=== PATIENT | male | born 1975 ===

== ENCOUNTER 2017-12-23 14:40 | Emergency (ER) | payer OTHER ==
[2017-12-23] MEDS ORDERED: levETIRAcetam 500 MG in Sodium Chloride 0.9% 100 ML IVPB STA (15:06)
[2017-12-23] MEDS ORDERED: Sodium Chloride 0.9% 1,000 ML IV ONE (15:06)
[2017-12-23 15:19] LABS: BASO # 0.2 K/uL (0.0-0.2); BASO % 3.7 % (0.0-2.0); EOS % 0.2 % (0.0-4.0); LYMPH % 22.7 % (20.0-40.0); MEAN CELL VOLUME 92.2 fL (80.0-94.0); MEAN CORPUSCULAR HEMOGLOBIN 31.9 pg (27.0-31.0); MEAN CORPUSCULAR HGB CONC 34.6 g/dL (33.0-37.0); MEAN PLATELET VOLUME 8.6 fL (7.2-11.7); MONO # 0.3 K/uL (0.0-0.8); MONO % 6.1 % (0.0-10.0); NEUT # 3.1 K/uL (1.8-7.0); NEUT % 67.3 % (50.0-75.0); NRBC % 0.3 % (0.0-2.0); PLATELET COUNT 196 K/uL (130-400); RBC 4.38 Mil/uL (4.40-5.90); WHITE BLOOD COUNT 4.5 K/uL (4.8-10.8)
[2017-12-23 15:32] LABS: ALB/GLOB RATIO 1.4 (1.0-2.1); ALBUMIN 4.5 g/dL (3.5-5.0); ALT/SGPT 265 U/L (21-72); AST/SGOT 649 U/L (17-59); BLOOD UREA NITROGEN 11 mg/dL (9-20); CALCIUM 8.7 mg/dl (8.6-10.4); GFR AFRICAN-AMERICAN > 60; GFR NON-AFRICAN AMERICAN > 60
--- NOTE | 2017-12-23 15:44 | C.PDOC ---
History Of Present Illness 41 y/o male, w/PMhx of seizures, presents to the ER for evaluation of seizure activity which occurred today. Patient states that he had seizure today. Sister of patient notes that the episode lasted about 3 minutes. Sister notes that he had another seizure while she was driving him to the ER. Patient notes that he is supposed to be taking Keppra but he has not been taking it for the past several weeks. He states that he has history of bipolar disorder and anxiety, he is not compliant with his [place] medication. Time Seen by Provider: 12/23/17 14:48 Chief Complaint (Nursing): Altered Mental Status History Per: Patient, Family History/Exam Limitations: no limitations Number Of Seizures: Multiple Severity: Moderate Past Medical History Reviewed: Historical Data, Nursing Documentation, Vital Signs Vital Signs: Last Vital Signs Temp 97.7 F 12/23/17 19:26 Pulse 69 12/23/17 19:26 Resp 16 12/23/17 19:26 BP 95/52 L 12/23/17 19:26 Pulse Ox 97 12/23/17 19:26 - Medical History PMH: Bipolar Disorder, Seizures Surgical History: No Surg Hx Family History: States: No Known Family Hx - Social History Hx Alcohol Use: Yes Hx Substance Use: No (Denies) Review Of Systems Except As Marked, All Systems Reviewed And Found Negative. Constitutional: Negative for: Fever, Chills Neurological: Positive for: Seizures (currently resolved) Physical Exam - Physical Exam Appears: Non-toxic, Other (awake, alert, aggressive, mildly combative, only answers some questions) Skin: Normal Color, Warm, Dry Head: Atraumatic, Normacephalic Eye(s): bilateral: Normal Inspection Nose: Normal Oral Mucosa: Moist Tongue: No Laceration, Other (tongue fasciculation) Neck: Supple Chest: Symmetrical Cardiovascular: Rhythm Irregular (tachycardiac) Respiratory: Normal Breath Sounds, No Rales, No Rhonchi Neurological/Psych: Other (awake, alert, mildly combative) ED Course And Treatment - Laboratory Results Result Diagrams: 12/23/17 15:14 12/23/17 15:14 Medical Decision Making Medical Decision Making: Plan: --Labs --UA --ECG --Ativan IV --Haldol IM --IV Fluids Patient given 1L NS bolus. Ativan 2mg ivp given. Haldol 5mg IM also given for combative behavior which successfully sedated the patient. he was sleeping comfortably throughout ED course. No further seizures noted. 500mg Keppra ivpb given as patient has been noncompliant with his medication at home. On re-eval patient was in no acute distress, sleeping comfortably. Labs were unremarkable. Results discussed with patient and sister. Sister has been working to get patient into detox. Disposition - Disposition Disposition: HOME/ ROUTINE Disposition Time: 19:31 Condition: STABLE Additional Instructions: BUZZ MONTALVO, thank you for letting us take care of you today. Your provider was Taniya Santamaria MD and you were treated for SEIZURE. The emergency medical care you received today was directed at your acute symptoms. If you were prescribed any medication, please fill it and take as directed. It may take several days for your symptoms to resolve. Return to the Emergency Department if your symptoms worsen, do not improve, or if you have any other problems. Please contact your doctor or call one of the physicians/clinics you have been referred to that are listed on the Patient Visit Information form that is included in your discharge packet. Bring any paperwork you were given at discharge with you along with any medications you are taking to your follow up visit. Our treatment cannot replace ongoing medical care by a primary care provider outside of the emergency department. Thank you for allowing the [facility] team to be part of your care today. If you had an X-Ray or CT scan: A Radiologist will review the ED reading if any change in treatment is needed we will contact you. If you had a blood, urine, or wound culture: It will take several days for the results, if any change in treatment is needed we will contact you. If you had an STI test: It will take 48 hours for the results. Please call after 1 week if you have not heard back. Instructions: Seizures, Adult (DC), Alcohol Abuse and Alcoholism (DC) Forms: [employer] (Italian) - Clinical Impression Clinical Impression: Alcohol abuse, Seizure - Scribe Statement The provider has reviewed the documentation as recorded by the Scribe Nenita Damon Provider Attestation: All medical record entries made by the Scribe were at my direction and personally dictated by me. I have reviewed the chart and agree that the record accurately reflects my personal performance of the history, physical exam, medical decision making, and the department course for this patient. I have also personally directed, reviewed, and agree with the discharge instructions and disposition.
[2017-12-23 15:47] LABS: BASOPHIL 1 % (0-2); LYMPHOCYTE 30 % (20-40); MONOCYTE 6 % (0-10); NEUTROPHIL 63 % (50-75); NUCLEATED RED BLOOD CELL 1 % (0-0); PLATELET ESTIMATE NORMAL (NORMAL); TOTAL CELLS COUNTED 100
[2017-12-23 17:37] LABS: URINE BILIRUBIN NEGATIVE (NEGATIVE); URINE BLOOD 1+ (NEGATIVE); URINE CLARITY Clear (Clear); URINE COLOR Yellow (YELLOW); URINE GLUCOSE (UA) NORMAL (Normal); URINE LEUKOCYTE ESTERASE NEG Leu/uL (Negative); URINE PROTEIN NEGATIVE (NEGATIVE)
[2017-12-23 18:18] LABS: BARBITURATES, UR NEGATIVE (NEGATIVE); OPIATES, UR NEGATIVE (NEGATIVE); PHENCYCLIDINE, UR NEGATIVE (NEGATIVE)
[2017-12-23 18:21] LABS: BENZODIAZEPINES, UR POSITIVE (NEGATIVE)
[2017-12-23 18:24] VITALS: O2SAT 97
[2017-12-23 19:27] VITALS: BP 95/52; PULSE 69; RESP 16; TEMP 97.7
== END 2017-12-23 19:38 | disposition home or self-care (01) ==
LOC: C.ER 14:40
DX: G40.909 Epilepsy, unspecified, not intractable, without status epilepticus (principal); F10.10 Alcohol abuse, uncomplicated; Y90.8 Blood alcohol level of 240 mg/100 ml or more; Z91.14 Patient's other noncompliance with medication regimen
CPT/HCPCS: 80053; 80320; 80324; 80345; 80346; 80349; 80353; 80358; 80361; 81001; 83992; 85025; 96365; 96372; 96375; 99285; J1630; J1953; J2060; J7030

== ENCOUNTER 2017-12-24 12:09 | Inpatient (IN) | payer OTHER ==
[2017-12-24 13:18] LABS: BASO # 0.1 K/uL (0.0-0.2); BASO % 1.3 % (0.0-2.0); EOS # 0.1 K/uL (0.0-0.7); EOS % 1.1 % (0.0-4.0); LYMPH # 1.5 K/uL (1.0-4.3); LYMPH % 26.2 % (20.0-40.0); MEAN CELL VOLUME 92.6 fL (80.0-94.0); MEAN CORPUSCULAR HEMOGLOBIN 31.6 pg (27.0-31.0); MEAN CORPUSCULAR HGB CONC 34.1 g/dL (33.0-37.0); MEAN PLATELET VOLUME 8.9 fL (7.2-11.7); MONO # 0.3 K/uL (0.0-0.8); MONO % 4.5 % (0.0-10.0); NEUT # 3.8 K/uL (1.8-7.0); NEUT % 66.9 % (50.0-75.0); NRBC % 0.1 % (0.0-2.0); RBC 4.42 Mil/uL (4.40-5.90); RED CELL DISTRIBUTION WIDTH 15.3 % (11.5-14.5); WHITE BLOOD COUNT 5.6 K/uL (4.8-10.8)
--- NOTE | 2017-12-24 13:18 | C.PDOC ---
History Of Present Illness 41 year old male presents to ED requesting detox from alcohol. Pt is pre- screened. Otherwise, he denies SI, HI, nausea, vomiting, abdominal pain, or any active physical complaints at this time. Time Seen by Provider: 12/24/17 12:52 Chief Complaint (Nursing): Substance Abuse History Per: Patient History/Exam Limitations: no limitations Past Medical History Reviewed: Historical Data, Nursing Documentation, Vital Signs Vital Signs: Last Vital Signs Temp 98.6 F 12/24/17 12:17 Pulse 111 H 12/24/17 12:17 Resp 20 12/24/17 12:17 BP 122/85 12/24/17 12:17 Pulse Ox 98 12/24/17 14:04 - Medical History PMH: Asthma, Bipolar Disorder, Seizures Denies: Chronic Kidney Disease Family History: States: Unknown Family Hx - Social History Hx Alcohol Use: Yes Hx Substance Use: No (Denies) - Immunization History Hx Tetanus Toxoid Vaccination: No Hx Influenza Vaccination: No Hx Pneumococcal Vaccination: No Review Of Systems Except As Marked, All Systems Reviewed And Found Negative. Constitutional: Negative for: Fever, Chills Cardiovascular: Negative for: Chest Pain Respiratory: Negative for: Shortness of Breath Physical Exam - Physical Exam Additional Physical Exam Comments: Constitutional: No acute distress. Head: Normocephalic. Atraumatic. Eyes: PERRL. ENT: Moist mucous membranes. Neck: Supple. Cardiovascular: Regular rate. Radial pulse 2+ bilaterally. Chest: No tenderness. Respiratory: Clear to auscultation bilaterally. GI: Soft. Nontender. Nondistended. Back: No CVA tenderness. Musculoskeletal: No tenderness or swelling of extremities. Skin: No rash. Neurologic: Alert, no focal deficit ED Course And Treatment - Laboratory Results Result Diagrams: 12/24/17 13:19 12/24/17 13:11 O2 Sat by Pulse Oximetry: 98 Medical Decision Making Medical Decision Making: Plan: * Blood work * Urinalysis Patient noted to be tremulous and agitated due to alcohol cessation. Librium administered. Dr. Basurto accepts patient to his service. Disposition - Disposition Disposition: HOSPITALIZED Disposition Time: 14:04 Condition: FAIR Forms: [employer] (Armenian) - Clinical Impression Clinical Impression: Alcohol use disorder, severe, dependence - Scribe Statement The provider has reviewed the documentation as recorded by the Scribe KP All medical record entries made by the Samia were at my direction and personally dictated by me. I have reviewed the chart and agree that the record accurately reflects my personal performance of the history, physical exam, medical decision making, and the department course for this patient. I have also personally directed, reviewed, and agree with the discharge instructions and disposition.
[2017-12-24 13:22] LABS: SQUAMOUS EPITHIAL < 1 /hpf (0-5); URINE BACTERIA OCC (<OCC); URINE BILIRUBIN NEGATIVE (NEGATIVE); URINE BLOOD 1+ (NEGATIVE); URINE CLARITY Clear (Clear); URINE COLOR Straw (YELLOW); URINE GLUCOSE (UA) NORMAL (Normal); URINE LEUKOCYTE ESTERASE NEG Leu/uL (Negative); URINE PROTEIN NEGATIVE (NEGATIVE); URINE UROBILINOGEN NORMAL mg/dL (0.2-1.0)
[2017-12-24 13:43] LABS: ALB/GLOB RATIO 1.5 (1.0-2.1); ALBUMIN 4.5 g/dL (3.5-5.0); ALT/SGPT 301 U/L (21-72); AST/SGOT 654 U/L (17-59); BLOOD UREA NITROGEN 6 mg/dL (9-20); GFR AFRICAN-AMERICAN > 60; GFR NON-AFRICAN AMERICAN > 60
[2017-12-24 13:48] LABS: BARBITURATES, UR NEGATIVE (NEGATIVE); BENZODIAZEPINES, UR NEGATIVE (NEGATIVE); OPIATES, UR NEGATIVE (NEGATIVE); PHENCYCLIDINE, UR NEGATIVE (NEGATIVE)
[2017-12-24 14:45] VITALS: TEMP 98.4
--- NOTE | 2017-12-24 15:08 | PCM.BM ---
Treatment Plan Problems - Problems identified on initial assessmt potential for alcohol withdrawals Date Initiated: 12/24/17 Time Initiated: 15:07 Assessment reference: NA Status: Active Treatment assets and liabiliti Patient Assests: adapts well, cooperative, motivated, ADL independent, physically healthy, negotiates basic needs Patient Liabilities: substance abuse, imparied memory, other - Milieu Protocol Maintain good personal hygiene: daily Encourage regular showers, daily Remind patient to perform daily oral care, daily Assist patient to perform ADL's Conduct patient checks and document Observation sheet: Q15 minutes Maintain personal safety: every shift Educate patient to report safety concerns to staff, every shift Monitor environment for contraband/sharps Medication safety: Monitor for expected outcome, potential side effects: every shift, Assess barriers to learning: every shift, Assess readiness for medication education: every shift
[2017-12-24 15:18] VITALS: RESP 18
[2017-12-24 16:49] VITALS: BP 113/74; PULSE 85; O2SAT 98
--- NOTE | 2017-12-24 22:09 | PCM.PYCHDC ---
Mental Status Examination - Mental Status Examination Orientation: Person Discharge Summary - Discharge Note Laboratory Data: Abnormal Lab Results 12/24/17 12/24/17 12/24/17 13:11 13:11 13:11 WBC RBC Hgb Hct MCV MCH MCHC RDW Plt Count MPV Neut % (Auto) Lymph % (Auto) [place] % (Auto) Eos % (Auto) Baso % (Auto) Neut # (Auto) Lymph # (Auto) [place] # (Auto) Eos # (Auto) Baso # (Auto) Sodium 140 Potassium 3.8 Chloride 93 L Carbon Dioxide 29 Anion Gap 21 H BUN 6 L Creatinine 0.7 L Est GFR ( Amer) > 60 Est GFR (Non-Af Amer) > 60 Random Glucose 92 Calcium 9.0 Total Bilirubin 1.0 AST 654 H ALT 301 H Alkaline Phosphatase 147 H Total Protein 7.5 Albumin 4.5 Globulin 3.0 Albumin/Globulin Ratio 1.5 Urine Color Straw Urine Clarity Clear Urine pH 7.0 Ur Specific [place] 1.002 L Urine Protein Negative Urine Glucose (UA) Normal Urine Ketones Trace Urine Blood 1+ H Urine Nitrate Negative Urine Bilirubin Negative Urine Urobilinogen Normal Ur Leukocyte Esterase Neg Urine RBC (Auto) 20 H Ur Squamous Epith Cells < 1 Urine Bacteria Occ H Urine Opiates Screen Negative Urine Methadone Screen Negative Ur Barbiturates Screen Negative Ur Phencyclidine Scrn Negative Ur Amphetamines Screen Negative U Benzodiazepines Scrn Negative U Oth Cocaine Metabols Negative U Cannabinoids Screen Negative Alcohol, Quantitative 257 H 12/24/17 13:19 WBC 5.6 RBC 4.42 Hgb 14.0 Hct 40.9 MCV 92.6 MCH 31.6 H MCHC 34.1 RDW 15.3 H Plt Count 182 MPV 8.9 Neut % (Auto) 66.9 Lymph % (Auto) 26.2 [place] % (Auto) 4.5 Eos % (Auto) 1.1 Baso % (Auto) 1.3 Neut # (Auto) 3.8 Lymph # (Auto) 1.5 [place] # (Auto) 0.3 Eos # (Auto) 0.1 Baso # (Auto) 0.1 Sodium Potassium Chloride Carbon Dioxide Anion Gap BUN Creatinine Est GFR ( Amer) Est GFR (Non-Af Amer) Random Glucose Calcium Total Bilirubin AST ALT Alkaline Phosphatase Total Protein Albumin Globulin Albumin/Globulin Ratio Urine Color Urine Clarity Urine pH Ur Specific [place] Urine Protein Urine Glucose (UA) Urine Ketones Urine Blood Urine Nitrate Urine Bilirubin Urine Urobilinogen Ur Leukocyte Esterase Urine RBC (Auto) Ur Squamous Epith Cells Urine Bacteria Urine Opiates Screen Urine Methadone Screen Ur Barbiturates Screen Ur Phencyclidine Scrn Ur Amphetamines Screen U Benzodiazepines Scrn U Oth Cocaine Metabols U Cannabinoids Screen Alcohol, Quantitative Consultations:: List each consultation separately and include: 1. Reason for request. 2. Findings. 3. Follow-up Summary of Hospital Course include:: 1. Description of specific treatment plan utilized for patients during their course of treatmen. 2. Summarize the time- course for resolution of acute symptoms and/or regressed behaviors. 3. Describe issues identified and worked on during hospitalization. 4. Describe medication utilized. 5. Describe medical problems identified and treated. 6. Reassessment of suicide risk - Final Diagnosis (DSM 5) Condition upon Discharge: FAIR Disposition: AGAINST MEDICAL ADVICE
--- NOTE | 2017-12-24 22:09 | PCM.PSYCH ---
Initial Psychiatric Evaluation - Initial Psychiatric Evaluation Type of Admission: Voluntary Legal Status: Capacity Past Psychiatric History - Past Psychiatric History Pertinent Medical Hx (Current Medical&Sleep Prob, Allergies): Allergies Allergy/AdvReac Type Severity Reaction Status Date / Time Seafood Allergy Uncoded 12/24/17 12:23 Keppra PO 12/23/17 Librium PO 12/23/17 Atarax 12/24/17
== END 2017-12-24 16:58 | disposition left against medical advice (07) | DRG 749 ==
LOC: C.ER 12:09 → C.7D 14:28
PROVIDERS: ADMIT Psychiatry & Neurology Psychiatry; ATTEND Psychiatry & Neurology Psychiatry
DX: F10.120 Alcohol abuse with intoxication, uncomplicated (principal); Y90.8 Blood alcohol level of 240 mg/100 ml or more; F31.9 Bipolar disorder, unspecified; J45.909 Unspecified asthma, uncomplicated